=== PATIENT | male | born 1955 | race Caucasian/White ===

== ENCOUNTER 2019-01-08 18:39 | Observation (INO) ==
[2019-01-08] MEDS ORDERED: *HR* Heparin 5,000 UNIT/ML VIAL IVP ONE (18:56)
[2019-01-08] MEDS ORDERED: *HR* Heparin 5,000 UNIT/ML VIAL IVP PRN ×2 (18:56)
[2019-01-08] MEDS ORDERED: Heparin 25,000 UNIT/250 ML D5W 25,000 UNIT/250 ML IV.SOLN IVC SCH (19:00)
[2019-01-08 19:22] LABS: Hematocrit 28.6 % (37.5-50.1); Mean Corpuscular HGB Conc 31.5 g/dL (31.6-35.5); Mean Corpuscular Hemoglobin 26.3 pg (28.0-33.3); Mean Corpuscular Volume 83.6 fL (83.0-100.0); Mean Platelet Volume 12.1 fL (9.4-12.4); Platelet Count 248 K/mcL (140-400); Red Blood Count 3.42 M/mcL (4.19-5.50); Red Cell Distribution Width 15.7 % (11.5-14.5); White Blood Count 10.9 K/mcL (4.3-11.1)
[2019-01-08 19:30] LABS: Heparin anti-factor XA UFH 0.04 IU/mL (0.30-0.70)
[2019-01-08 19:31] LABS: INR 1.2; Prothrombin Time 13.1 Seconds (9.4-12.1)
[2019-01-08 20:57] LABS: Bilirubin,Urine Negative (Negative); Blood,Urine Negative (Negative); Clarity,Urine Clear (Clear); Color,Urine Yellow (Yellow); Glucose,Urine (UA) Normal (Normal); Ketones,Urine Negative (Negative); Leukocyte Esterase,Urine Negative (Negative); Nitrite,Urine Negative (Negative); Protein,Urine Negative (Neg-Trace); Specific Gravity,Urine 1.014 (1.010-1.025); Urobilinogen,Urine Normal (Normal)
[2019-01-08 21:09] LABS: Sodium, Urine 39.5 mEq/L
[2019-01-08] MEDS ORDERED: Naloxone 0.4 MG/ML INJ IVP PRN (21:24)
[2019-01-08] MEDS ORDERED: 0.9 % Sodium Chloride 1,000 ML IVC SCH (21:30)
[2019-01-08] MEDS ORDERED: Albuterol 2.5 MG/3 ML NEBULIZER IH PRN (21:59)
[2019-01-08] MEDS ORDERED: GuaiFENesin Liq 200 MG/10 ML UDC PO PRN (21:59)
[2019-01-08 22:13] LABS: BUN/Creatinine Ratio 13 (6-26); Blood Urea Nitrogen 44 mg/dL (8-23); Carbon Dioxide 24 mEq/L (23-29); Chloride 100 mEq/L (98-107); Glucose 258 mg/dL (70-105); Osmolality,Calculated 300 (280-300); Potassium 3.4 mEq/L (3.5-5.1); Sodium 135 mEq/L (136-145); eGFR For African Americans 22 (> 60); eGFR For Non-African Americans 19 (> 60)
[2019-01-08] MEDS ORDERED: *HR* Dextrose 50 % in Water (Syg) 50 ML SYRINGE IVP PRN (22:13)
[2019-01-08] MEDS ORDERED: Dextrose Gel 15 GM/37.5 ML TUBE PO PRN ×2 (22:13)
[2019-01-08] MEDS ORDERED: D5% in Water 1,000 ML IVC PRN (22:13)
[2019-01-08] MEDS: *HR* OxyCODONE/APAP 10/325 TABLET PO PRN (22:39)
[2019-01-08] MEDS: Insulin DETEMIR 100 UNIT/ML X5UNITS SQ SCH (23:23)
[2019-01-09 01:10] LABS: Troponin I < 0.03 ng/mL (< 0.04)
[2019-01-09] MEDS ORDERED: Saline Nasal Spray 44 ML BOTTLE NS PRN (04:08)
[2019-01-09] MEDS ORDERED: hydrALAZINE 10 MG TABLET PO PRN (04:42)
[2019-01-09] MEDS ORDERED: *HR* Metoprolol 5 MG/5 ML VIAL IVP ONE (04:42)
[2019-01-09] MEDS: *HR* OxyCODONE/APAP 10/325 TABLET PO PRN ×3 (05:05→17:07)
[2019-01-09 06:06] LABS: Hematocrit 28.2 % (37.5-50.1); Hemoglobin 8.9 g/dL (12.9-16.9)
[2019-01-09 06:07] LABS: Basophils # 0.1 K/mcL (0.0-0.2); Basophils % 0.8 %; Eosinophils # 0.2 K/mcL (0.0-0.6); Eosinophils % 1.6 %; Hematocrit 28.4 % (37.5-50.1); Hemoglobin 8.9 g/dL (12.9-16.9); Immature Granulocytes % 0.5 % (0-4); Lymphocytes # 1.5 K/mcL (0.6-4.6); Lymphocytes % 12.3 %; Mean Corpuscular HGB Conc 31.3 g/dL (31.6-35.5); Mean Corpuscular Hemoglobin 26.2 pg (28.0-33.3); Mean Corpuscular Volume 83.5 fL (83.0-100.0); Mean Platelet Volume 12.5 fL (9.4-12.4); Monocytes # 1.2 K/mcL (0.0-1.3); Monocytes % 9.8 %; Neutrophils # 9.1 K/mcL (1.6-8.9); Platelet Count 259 K/mcL (140-400); Red Cell Distribution Width 15.6 % (11.5-14.5); White Blood Count 12.1 K/mcL (4.3-11.1)
[2019-01-09 06:15] LABS: INR 1.1; Prothrombin Time 12.8 Seconds (9.4-12.1)
[2019-01-09 06:23] LABS: BUN/Creatinine Ratio 13 (6-26); Blood Urea Nitrogen 43 mg/dL (8-23); Calcium 9.1 mg/dL (8.6-10.3); Carbon Dioxide 23 mEq/L (23-29); Chloride 102 mEq/L (98-107); Glucose 118 mg/dL (70-105); Magnesium 1.7 mg/dL (1.6-2.6); Osmolality,Calculated 298 (280-300); Potassium 3.7 mEq/L (3.5-5.1); Sodium 138 mEq/L (136-145); eGFR For African Americans 23 (> 60); eGFR For Non-African Americans 19 (> 60)
[2019-01-09 06:24] LABS: Troponin I < 0.03 ng/mL (< 0.04)
[2019-01-09] MEDS: DilTIAZem CD (24hr) 240 MG CAP.ER.24H PO SCH (08:26)
[2019-01-09] MEDS: carvediloL 25 MG TABLET PO SCH ×2 (08:26→16:57)
[2019-01-09] MEDS: Furosemide 40 MG/4 ML VIAL IVP SCH ×2 (08:26→16:57)
[2019-01-09] MEDS: Insulin LISPRO 300 UNITS/3 ML VIAL SQ SCH ×3 (08:26→16:58)
[2019-01-09] MEDS: Cholecalciferol (D-3) 1,000 UNIT (25MCG) TABLET PO SCH (08:26)
[2019-01-09] MEDS ORDERED: *HR* Amiodarone 200 MG TABLET PO SCH (09:00)
[2019-01-09] MEDS ORDERED: Furosemide 40 MG/4 ML VIAL IVP SCH (09:00)
[2019-01-09 09:12] LABS: Estimated Average Glucose 226 mg/dl
[2019-01-09 10:17] LABS: Hematocrit 29.9 % (37.5-50.1); Hemoglobin 9.7 g/dL (12.9-16.9)
[2019-01-09 16:23] LABS: Hematocrit 28.2 % (37.5-50.1); Hemoglobin 9.1 g/dL (12.9-16.9)
[2019-01-09] MEDS ORDERED: Acetaminophen 325 MG TABLET PO PRN (16:32)
[2019-01-09] MEDS ORDERED: Perflutren Lipid Microsphere 1.3 ML in 0.9 % Sodium Chloride 8.7 ML IVP ONE (19:18)
[2019-01-09] MEDS ORDERED: Insulin DETEMIR 100 UNIT/ML X5UNITS SQ SCH (21:00)
[2019-01-09] MEDS: Insulin DETEMIR 100 UNIT/ML X5UNITS SQ SCH (22:02)
[2019-01-09 22:06] LABS: Hematocrit 28.2 % (37.5-50.1); Hemoglobin 9.1 g/dL (12.9-16.9)
[2019-01-10] MEDS: *HR* OxyCODONE/APAP 10/325 TABLET PO PRN ×2 (00:24→10:18)
[2019-01-10 05:46] LABS: Basophils # 0.1 K/mcL (0.0-0.2); Eosinophils # 0.6 K/mcL (0.0-0.6); Eosinophils % 4.9 %; Hematocrit 28.9 % (37.5-50.1); Hemoglobin 8.9 g/dL (12.9-16.9); Immature Granulocytes % 0.3 % (0-4); Lymphocytes # 2.6 K/mcL (0.6-4.6); Lymphocytes % 22.7 %; Mean Corpuscular HGB Conc 30.8 g/dL (31.6-35.5); Mean Corpuscular Hemoglobin 25.9 pg (28.0-33.3); Mean Platelet Volume 12.9 fL (9.4-12.4); Monocytes # 1.2 K/mcL (0.0-1.3); Monocytes % 10.6 %; Platelet Count 272 K/mcL (140-400); Red Blood Count 3.44 M/mcL (4.19-5.50); Red Cell Distribution Width 15.7 % (11.5-14.5); Segmented Neutrophils % 60.5 %; White Blood Count 11.5 K/mcL (4.3-11.1)
[2019-01-10 06:01] LABS: Calcium 9.4 mg/dL (8.6-10.3); Potassium 3.5 mEq/L (3.5-5.1)
[2019-01-10] MEDS: Insulin LISPRO 300 UNITS/3 ML VIAL SQ SCH (10:10)
[2019-01-10] MEDS: DilTIAZem CD (24hr) 240 MG CAP.ER.24H PO SCH (10:10)
[2019-01-10] MEDS: Cholecalciferol (D-3) 1,000 UNIT (25MCG) TABLET PO SCH (10:11)
[2019-01-10] MEDS: Furosemide 40 MG/4 ML VIAL IVP SCH (10:11)
[2019-01-10] MEDS: carvediloL 25 MG TABLET PO SCH (10:11)
[2019-01-10 11:08] VITALS: BP 157/82
== END 2019-01-10 12:25 | disposition home or self-care (01) ==
LOC: EMEROOARM 18:39 → 2ANU 18:39 → SUATTDRO 21:06 → 2ANU 21:14
PROVIDERS: ADMIT Internal Medicine; ATTEND Family Medicine